=== PATIENT | male | born 1950 | race African-American/Black ===

== ENCOUNTER 2019-08-24 20:21 | Inpatient (IN) | payer MEDICARE, MEDICAID ==
[~2019-08-24] VITALS: Ht 170.2 cm; Wt 180.0 kg
[2019-08-24 22:02] LABS: BASOPHILS % 0.4 % (0.0-2.0); EOSINOPHILS % 0.1 % (0.0-5.0); HEMATOCRIT. 31.9 % (42.0-52.0); HEMOGLOBIN. 9.9 g/dL (14.0-18.0); MEAN CORPUSCULAR HEMOGLOBIN 24.3 pg (28.0-32.0); MEAN CORPUSCULAR VOLUME 78.6 fL (80.0-94.0); MEAN PLATELET VOLUME 8.1 fl (7.4-10.4); MONOCYTES % 9.3 % (2.0-8.0); NEUTROPHILS % 81.2 % (40.0-76.0); PLATELET 410 x1000/uL (130-400); RED BLOOD CELL COUNT 4.06 mill/uL (4.7-6.1); RED CELL DISTRIBUTION WIDTH 25.5 % (11.6-14.6)
[2019-08-24 22:19] LABS: PLATELET ESTIMATE INCREASED
[2019-08-24 22:20] LABS: CHLORIDE 116 mEq/L (98-107)
[2019-08-24] MEDS ORDERED: ASPIRIN 81MG TABLET PO ONE (23:30)
[2019-08-24] MEDS ORDERED: FUROSEMIDE 40MG/4ML VIAL IV ONE (23:30)
[2019-08-24] MEDS ORDERED: BACITRACIN ZINC OINT UDPKT TOP ONE (23:30)
[2019-08-24] MEDS ORDERED: ENOXAPARIN 120MG/0.8ML SYR SUBCUT ONE (23:30)
[2019-08-25] MEDS ORDERED: ALBUTEROL (0.083%) 2.5MG/3ML NEB HHN ONE (01:15)
[2019-08-25] MEDS ORDERED: CLONIDINE 0.1MG TABLET PO PRN (11:45)
[2019-08-25] MEDS ORDERED: ACETAMINOPHEN 325MG TABLET PO PRN (11:45)
[2019-08-25] MEDS ORDERED: IPRATROPIUM/ALBUTEROL 0.5-3(2.5)MG/3ML NEB HHN PRN (11:45)
[2019-08-25] MEDS ORDERED: ONDANSETRON HCL 4MG/2ML INJ IV PRN (11:45)
[2019-08-25] MEDS ORDERED: LORAZEPAM 0.5MG TABLET PO PRN (11:45)
[2019-08-25] MEDS ORDERED: CEFTRIAXONE 1 G PREMIX 50 ML IV SCH (12:00)
[2019-08-25] MEDS ORDERED: AZITHROMYCIN 500 MG in DEXT 5% WATER 250 ML IV SCH (12:00)
[2019-08-25] MEDS: FUROSEMIDE 40MG/4ML VIAL IVP SCH ×2 (12:42→18:25)
[2019-08-25 15:38] LABS: HEMOGLOBIN. 8.7 g/dL (14.0-18.0); MEAN CORPUSCULAR HEMOGLOBIN 23.2 pg (28.0-32.0); MEAN CORPUSCULAR VOLUME 74.8 fL (80.0-94.0); MEAN PLATELET VOLUME 7.9 fl (7.4-10.4); PLATELET 383 x1000/uL (130-400); RED BLOOD CELL COUNT 3.74 mill/uL (4.7-6.1); RED CELL DISTRIBUTION WIDTH 25.6 % (11.6-14.6)
[2019-08-25 15:47] LABS: CREATINE KINASE MB FRACTION 11.2 ng/mL (0.5-3.6)
[2019-08-25 15:58] LABS: PLATELET ESTIMATE NORMAL
[2019-08-25 18:47] LABS: BG BASE EXCESS -2.2 mmol/L (-2.0-2.0); BG CARBOXYHEMOGLOBIN 0.3 % (0.5-1.5); BG DEOXYHEMOGLOBIN 3.9 % (0.0-5.0); BG FRACTION INSPIRED OXYGEN 28; BG HCO3 ACT 21.7 mmol/L (22.0-26.0); BG METHEMOGLOBIN 0.4 % (0.0-1.5); BG OXYGEN SATURATION 96.1 % (92.0-98.5); BG OXYHEMOGLOBIN 95.4 % (94.0-97.0); BG PCO2 33.6 mmHg (35.0-45.0); BG PH 7.428 (7.350-7.450); BG PO2 91.5 mmHg (75.0-100.0); BG SAMPLE SITE RIGHT BRACHIAL; BG TOTAL HEMOGLOBIN 9.6 g/dL (12.0-18.0); BG VENT MODE NASAL CANNULA
[2019-08-26 01:00] VITALS: BP 100/51
[2019-08-26] MEDS ORDERED: FURO-151 PO (01:46)
[2019-08-26 07:49] LABS: HEMATOCRIT. 25.3 % (42.0-52.0); HEMOGLOBIN. 7.9 g/dL (14.0-18.0); MEAN CORPUSCULAR HEMOGLOBIN 23.3 pg (28.0-32.0); MEAN CORPUSCULAR VOLUME 74.9 fL (80.0-94.0); MEAN PLATELET VOLUME 7.7 fl (7.4-10.4); PLATELET 335 x1000/uL (130-400); RED BLOOD CELL COUNT 3.38 mill/uL (4.7-6.1)
[2019-08-26 08:00] VITALS: BP 100/55
[2019-08-26] MEDS: FUROSEMIDE 40MG/4ML VIAL IVP SCH ×2 (10:16→17:00)
[2019-08-26 10:28] LABS: PLATELET ESTIMATE NORMAL
[2019-08-26 12:00] VITALS: BP 103/53
[2019-08-26] MEDS ORDERED: INFLUENZA VIRUS VACCINE(AFLURIA) 0.5ML SYR IM ONE (12:00)
[2019-08-26] MEDS ORDERED: CEFTRIAXONE 1 G PREMIX 50 ML IV SCH (12:00)
[2019-08-26] MEDS ORDERED: PNEUMOCOCCAL 23-VAL P-SAC VAC 0.5 ML IM ONE (12:00)
[2019-08-26 12:55] LABS: CLARITY URINE CLEAR (CLEAR); COLOR URINE YELLOW (YELLOW); KETONES URINE NEGATIVE (NEGATIVE); LEUKOCYTE ESTERASE URINE NEGATIVE (NEGATIVE); NITRITE URINE NEGATIVE (NEGATIVE); OCCULT BLOOD URINE NEGATIVE (NEGATIVE); PROTEIN URINE NEGATIVE (NEGATIVE); SPECIFIC GRAVITY URINE 1.014 (1.005-1.030)
[2019-08-26] MEDS ORDERED: AZITHROMYCIN 500 MG in DEXT 5% WATER 250 ML IV SCH (13:00)
[2019-08-26] MEDS ORDERED: PIPERACILLIN/TAZOBACTAM 3.375 G/VIAL IV SCH (14:00)
[2019-08-26] MEDS ORDERED: DEXTROSE 50% WATER 50ML SYRINGE IV PRN (14:00)
[2019-08-26] MEDS ORDERED: SODIUM BICARBONATE 4% (2.4MEQ) 5ML VIAL IV ONE (14:36)
[2019-08-26] MEDS ORDERED: LIDOCAINE HCL 1% 20ML VIAL (Pyxis) INJ ONE (14:36)
[2019-08-26] MEDS ORDERED: PIPERACILLIN/TAZOBACTAM 3.375 G in DEXT 5% WATER 100 ML IV SCH (15:30)
[2019-08-26 16:00] VITALS: BP 101/64
[2019-08-26] MEDS ORDERED: VANCOMYCIN 1500MG in DEXTROSE 5% WATER 250ML IV SCH (16:00)
[2019-08-26] MEDS: BLOOD SUGAR DIAGNOSTIC STRIP TEST SCH ×2 (16:57→22:00)
[2019-08-26] MEDS: INSULIN LISPRO 100 UNITS/ML SUBCUT SCH ×2 (17:15→21:00)
[2019-08-26 17:54] LABS: HEPATITIS B SURFACE ANTIGEN NEGATIVE
[2019-08-26 18:24] LABS: HEPATITIS A AB IGM NEGATIVE (NEGATIVE)
[2019-08-26] MEDS: CARVEDILOL 3.125 MG TABLET PO SCH (21:00)
[2019-08-26] MEDS: CEFEPIME 2,000 MG in DEXT 5% WATER 100 ML IV SCH (22:00)
[2019-08-26] MEDS: LINEZOLID 600 MG PREMIX 300 ML IV SCH (22:00)
[2019-08-27 04:00] VITALS: BP 113/62
[2019-08-27] MEDS: INSULIN LISPRO 100 UNITS/ML SUBCUT SCH ×4 (07:15→21:45)
[2019-08-27] MEDS: BLOOD SUGAR DIAGNOSTIC STRIP TEST SCH ×4 (07:18→21:36)
[2019-08-27 07:34] LABS: PHOSPHORUS 3.1 mg/dL (2.5-4.9)
[2019-08-27 07:39] LABS: BASOPHILS % 0.2 % (0.0-2.0); EOSINOPHILS % 1.4 % (0.0-5.0); HEMATOCRIT. 22.6 % (42.0-52.0); HEMOGLOBIN. 7.3 g/dL (14.0-18.0); LYMPHOCYTES % 17.7 % (20.0-50.0); MEAN CORPUSCULAR VOLUME 77.8 fL (80.0-94.0); MEAN PLATELET VOLUME 7.8 fl (7.4-10.4); MONOCYTES % 10.7 % (2.0-8.0); PLATELET 269 x1000/uL (130-400); RED BLOOD CELL COUNT 2.91 mill/uL (4.7-6.1); RED CELL DISTRIBUTION WIDTH 24.9 % (11.6-14.6)
[2019-08-27 08:00] VITALS: BP 87/55
[2019-08-27] MEDS: FUROSEMIDE 40MG/4ML VIAL IVP SCH ×3 (09:00→18:10)
[2019-08-27] MEDS: CARVEDILOL 3.125 MG TABLET PO SCH (09:00)
[2019-08-27] MEDS: HYDROCODONE/ACETAMINOPHEN 5/325MG TABLET PO PRN ×2 (09:01→23:38)
[2019-08-27] MEDS: LINEZOLID 600 MG PREMIX 300 ML IV SCH ×2 (10:55→22:45)
[2019-08-27 12:00] VITALS: BP 89/58
[2019-08-27] MEDS: MIDODRINE HCL 2.5MG TABLET PO SCH ×2 (12:23→18:10)
[2019-08-27] MEDS ORDERED: ALBUMIN HUMAN 25GM/100ML (25%) IV SCH (14:00)
[2019-08-27 16:00] VITALS: BP 91/50
[2019-08-27] MEDS ORDERED: VANCOMYCIN 1250MG in DEXTROSE 5% WATER 250ML IV SCH (16:00)
[2019-08-27 20:00] VITALS: BP 99/56
[2019-08-27] MEDS: CEFEPIME 2,000 MG in DEXT 5% WATER 100 ML IV SCH (21:37)
[2019-08-28] VITALS: BP 102/59
[2019-08-28 04:00] VITALS: BP 103/64
[2019-08-28 05:08] LABS: HIV SCREEN 4G Non Reactive (Non Reactive)
[2019-08-28 06:03] LABS: PHOSPHORUS 3.1 mg/dL (2.5-4.9)
[2019-08-28] MEDS: BLOOD SUGAR DIAGNOSTIC STRIP TEST SCH ×4 (06:03→21:03)
[2019-08-28] MEDS: INSULIN LISPRO 100 UNITS/ML SUBCUT SCH ×4 (06:03→21:00)
[2019-08-28 06:27] LABS: BASOPHILS % 0.1 % (0.0-2.0); EOSINOPHILS % 1.6 % (0.0-5.0); HEMATOCRIT. 23.1 % (42.0-52.0); HEMOGLOBIN. 7.4 g/dL (14.0-18.0); LYMPHOCYTES % 17.9 % (20.0-50.0); MEAN CORPUSCULAR HEMOGLOBIN 24.2 pg (28.0-32.0); MEAN PLATELET VOLUME 7.9 fl (7.4-10.4); MONOCYTES % 10.9 % (2.0-8.0); NEUTROPHILS % 69.5 % (40.0-76.0); PLATELET 267 x1000/uL (130-400); RED BLOOD CELL COUNT 3.05 mill/uL (4.7-6.1)
[2019-08-28 08:00] VITALS: BP 96/67
[2019-08-28] MEDS: FUROSEMIDE 40MG/4ML VIAL IVP SCH ×2 (08:55→17:03)
[2019-08-28] MEDS: MIDODRINE HCL 2.5MG TABLET PO SCH ×3 (08:57→17:02)
[2019-08-28] MEDS: LINEZOLID 600 MG PREMIX 300 ML IV SCH ×2 (09:05→22:30)
[2019-08-28] MEDS: HYDROCODONE/ACETAMINOPHEN 5/325MG TABLET PO PRN (10:26)
[2019-08-28 12:00] VITALS: BP 100/68
[2019-08-28 17:36] LABS: INR 1.1; PROTHROMBIN TIME 11.8 sec (9.6-11.0)
[2019-08-28 20:00] VITALS: BP 104/69
[2019-08-28] MEDS: NYSTATIN POWDER 15GM TOP SCH (20:52)
[2019-08-28] MEDS: CEFEPIME 2,000 MG in DEXT 5% WATER 100 ML IV SCH (21:04)
[2019-08-29] VITALS: BP 108/70
[2019-08-29 04:00] VITALS: BP 108/70
[2019-08-29] MEDS: BLOOD SUGAR DIAGNOSTIC STRIP TEST SCH ×4 (05:53→21:00)
[2019-08-29 06:57] LABS: HEMATOCRIT. 24.5 % (42.0-52.0); HEMOGLOBIN. 7.8 g/dL (14.0-18.0); MEAN CORPUSCULAR HEMOGLOBIN 23.9 pg (28.0-32.0); MEAN CORPUSCULAR VOLUME 74.8 fL (80.0-94.0); MEAN PLATELET VOLUME 7.9 fl (7.4-10.4); PLATELET 283 x1000/uL (130-400); RED BLOOD CELL COUNT 3.28 mill/uL (4.7-6.1)
[2019-08-29] MEDS: INSULIN LISPRO 100 UNITS/ML SUBCUT SCH ×4 (07:15→21:00)
[2019-08-29 07:23] LABS: PHOSPHORUS 2.9 mg/dL (2.5-4.9)
[2019-08-29] MEDS: HYDROCODONE/ACETAMINOPHEN 5/325MG TABLET PO PRN (08:45)
[2019-08-29] MEDS: FUROSEMIDE 40MG/4ML VIAL IVP SCH ×2 (08:46→16:59)
[2019-08-29] MEDS: MIDODRINE HCL 2.5MG TABLET PO SCH ×3 (08:46→17:00)
[2019-08-29] MEDS: NYSTATIN POWDER 15GM TOP SCH ×2 (09:00→17:00)
[2019-08-29 09:30] VITALS: BP 108/74
[2019-08-29 11:32] LABS: PLATELET ESTIMATE NORMAL
[2019-08-29 12:00] VITALS: BP 111/79
[2019-08-29] MEDS: DOCUSATE SODIUM 100MG CAPSULE PO SCH ×2 (13:18→16:59)
[2019-08-29] MEDS: FERROUS SULFATE 325MG TABLET PO SCH ×2 (13:18→16:59)
[2019-08-29 16:00] VITALS: BP 114/63
[2019-08-29] MEDS: LINEZOLID 600MG TABLET PO SCH (17:00)
[2019-08-29 20:00] VITALS: BP 116/68
[2019-08-29] MEDS: CEFEPIME 2,000 MG in DEXT 5% WATER 100 ML IV SCH (22:52)
[2019-08-30] VITALS: BP 112/68
[2019-08-30 04:00] VITALS: BP 114/60
[2019-08-30] MEDS: FERROUS SULFATE 325MG TABLET PO SCH (06:18)
[2019-08-30] MEDS: INSULIN LISPRO 100 UNITS/ML SUBCUT SCH ×4 (06:19→21:00)
[2019-08-30] MEDS: BLOOD SUGAR DIAGNOSTIC STRIP TEST SCH ×4 (06:19→21:00)
[2019-08-30 08:00] VITALS: BP 106/67
[2019-08-30] MEDS: DOCUSATE SODIUM 100MG CAPSULE PO SCH ×2 (08:40→16:38)
[2019-08-30] MEDS: LINEZOLID 600MG TABLET PO SCH ×2 (08:40→16:39)
[2019-08-30] MEDS: MIDODRINE HCL 2.5MG TABLET PO SCH ×3 (08:47→16:38)
[2019-08-30] MEDS: FUROSEMIDE 40MG/4ML VIAL IVP SCH ×2 (08:48→16:39)
[2019-08-30] MEDS: NYSTATIN POWDER 15GM TOP SCH ×2 (08:48→16:46)
[2019-08-30] MEDS: HYDROCODONE/ACETAMINOPHEN 5/325MG TABLET PO PRN (08:48)
[2019-08-30 09:38] LABS: HEMATOCRIT. 26.5 % (42.0-52.0); HEMOGLOBIN. 8.4 g/dL (14.0-18.0); MEAN CORPUSCULAR HEMOGLOBIN 23.6 pg (28.0-32.0); MEAN CORPUSCULAR VOLUME 74.7 fL (80.0-94.0); PLATELET 292 x1000/uL (130-400); RED BLOOD CELL COUNT 3.54 mill/uL (4.7-6.1); RED CELL DISTRIBUTION WIDTH 25.1 % (11.6-14.6)
[2019-08-30 09:44] LABS: CHLORIDE 108 mEq/L (98-107)
[2019-08-30 11:40] LABS: PLATELET ESTIMATE NORMAL
[2019-08-30 12:00] VITALS: BP 103/62
[2019-08-30] MEDS: IRON SUCROSE COMPLEX 100 MG/5 ML ML IV SCH (14:22)
[2019-08-30 16:00] VITALS: BP 96/75
[2019-08-30 20:00] VITALS: BP 121/88
[2019-08-31] VITALS: BP 98/60
[2019-08-31] MEDS: CEFEPIME 2,000 MG in DEXT 5% WATER 100 ML IV SCH ×2 (00:10→21:53)
[2019-08-31 04:00] VITALS: BP 100/61
[2019-08-31] MEDS: BLOOD SUGAR DIAGNOSTIC STRIP TEST SCH ×4 (05:46→21:52)
[2019-08-31] MEDS: INSULIN LISPRO 100 UNITS/ML SUBCUT SCH ×4 (06:43→21:00)
[2019-08-31 08:00] VITALS: BP 121/79
[2019-08-31] MEDS: MIDODRINE HCL 2.5MG TABLET PO SCH ×3 (09:38→18:18)
[2019-08-31] MEDS: DOCUSATE SODIUM 100MG CAPSULE PO SCH ×2 (09:38→18:19)
[2019-08-31] MEDS: NYSTATIN POWDER 15GM TOP SCH ×2 (09:38→18:18)
[2019-08-31] MEDS: FUROSEMIDE 40MG/4ML VIAL IVP SCH ×2 (09:38→18:18)
[2019-08-31] MEDS: LINEZOLID 600MG TABLET PO SCH ×2 (09:39→17:00)
[2019-08-31 10:15] LABS: BASOPHILS % 0.5 % (0.0-2.0); EOSINOPHILS % 1.2 % (0.0-5.0); HEMATOCRIT. 25.1 % (42.0-52.0); HEMOGLOBIN. 7.9 g/dL (14.0-18.0); LYMPHOCYTES % 14.9 % (20.0-50.0); MEAN CORPUSCULAR HEMOGLOBIN 23.1 pg (28.0-32.0); MEAN CORPUSCULAR VOLUME 73.7 fL (80.0-94.0); MEAN PLATELET VOLUME 7.5 fl (7.4-10.4); MONOCYTES % 10.4 % (2.0-8.0); PLATELET 304 x1000/uL (130-400); RED BLOOD CELL COUNT 3.41 mill/uL (4.7-6.1)
[2019-08-31 10:29] LABS: CHLORIDE 110 mEq/L (98-107)
[2019-08-31] MEDS: IRON SUCROSE COMPLEX 100 MG/5 ML ML IV SCH (11:46)
[2019-08-31 12:00] VITALS: BP 107/77
[2019-08-31] MEDS: PSYLLIUM SEED PACKET PO SCH ×2 (13:02→18:18)
[2019-08-31 16:00] VITALS: BP 116/82
[2019-08-31 20:00] VITALS: BP 120/75
[2019-09-01] VITALS (7 sets, daily range): BP systolic 104–115; BP diastolic 66–80
[2019-09-01] MEDS: BLOOD SUGAR DIAGNOSTIC STRIP TEST SCH ×4 (06:35→20:38)
[2019-09-01] MEDS: INSULIN LISPRO 100 UNITS/ML SUBCUT SCH ×4 (06:35→20:38)
[2019-09-01 08:56] LABS: HEMATOCRIT. 24.9 % (42.0-52.0); HEMOGLOBIN. 7.9 g/dL (14.0-18.0); MEAN CORPUSCULAR HEMOGLOBIN 24.4 pg (28.0-32.0); MEAN CORPUSCULAR VOLUME 76.5 fL (80.0-94.0); PLATELET 298 x1000/uL (130-400); RED BLOOD CELL COUNT 3.25 mill/uL (4.7-6.1); RED CELL DISTRIBUTION WIDTH 24.9 % (11.6-14.6)
[2019-09-01] MEDS: DOCUSATE SODIUM 100MG CAPSULE PO SCH ×2 (09:00→17:00)
[2019-09-01] MEDS: PSYLLIUM SEED PACKET PO SCH ×3 (09:00→17:00)
[2019-09-01 09:01] LABS: CHLORIDE 110 mEq/L (98-107)
[2019-09-01] MEDS: IRON SUCROSE COMPLEX 100 MG/5 ML ML IV SCH (09:06)
[2019-09-01] MEDS: FUROSEMIDE 40MG/4ML VIAL IVP SCH ×2 (09:06→17:32)
[2019-09-01] MEDS: MIDODRINE HCL 2.5MG TABLET PO SCH ×3 (09:06→17:30)
[2019-09-01] MEDS: NYSTATIN POWDER 15GM TOP SCH ×2 (09:08→17:32)
[2019-09-01 09:10] LABS: PHOSPHORUS 2.2 mg/dL (2.5-4.9)
[2019-09-01] MEDS ORDERED: HYDROMORPHONE HCL/PF 2MG/ML CPJ IV NR (10:15)
[2019-09-01] MEDS ORDERED: FERR325T6 MT (11:21)
[2019-09-01] MEDS ORDERED: FURO40TA5 MT (11:21)
[2019-09-01 12:31] LABS: PLATELET ESTIMATE NORMAL
[2019-09-01] MEDS: FERROUS SULFATE 325MG TABLET PO SCH ×2 (13:04→17:29)
[2019-09-02] VITALS: BP 118/82
[2019-09-02 04:00] VITALS: BP 114/67
[2019-09-02] MEDS: INSULIN LISPRO 100 UNITS/ML SUBCUT SCH ×4 (05:46→21:00)
[2019-09-02] MEDS: BLOOD SUGAR DIAGNOSTIC STRIP TEST SCH ×4 (05:46→21:00)
[2019-09-02] MEDS: FERROUS SULFATE 325MG TABLET PO SCH ×3 (06:19→18:54)
[2019-09-02 08:00] VITALS: BP 119/80
[2019-09-02] MEDS: DOCUSATE SODIUM 100MG CAPSULE PO SCH ×2 (09:00→17:00)
[2019-09-02] MEDS: PSYLLIUM SEED PACKET PO SCH ×4 (09:00→17:00)
[2019-09-02] MEDS: MIDODRINE HCL 2.5MG TABLET PO SCH ×3 (10:13→18:53)
[2019-09-02] MEDS: FUROSEMIDE 40MG/4ML VIAL IVP SCH ×2 (10:13→18:53)
[2019-09-02] MEDS: NYSTATIN POWDER 15GM TOP SCH ×2 (10:14→18:54)
[2019-09-02 12:00] VITALS: BP 119/84
[2019-09-02 16:00] VITALS: BP 113/81
[2019-09-02 20:00] VITALS: BP 121/89
[2019-09-03] VITALS: BP 122/86
[2019-09-03 04:00] VITALS: BP 114/73
[2019-09-03] MEDS: BLOOD SUGAR DIAGNOSTIC STRIP TEST SCH (05:50)
[2019-09-03] MEDS: INSULIN LISPRO 100 UNITS/ML SUBCUT SCH ×2 (06:16→12:15)
[2019-09-03 08:00] VITALS: BP 124/84
[2019-09-03] MEDS: NYSTATIN POWDER 15GM TOP SCH (09:15)
[2019-09-03] MEDS: DOCUSATE SODIUM 100MG CAPSULE PO SCH (09:15)
[2019-09-03] MEDS: FERROUS SULFATE 325MG TABLET PO SCH ×2 (09:15→13:11)
[2019-09-03] MEDS: MIDODRINE HCL 2.5MG TABLET PO SCH ×2 (09:15→13:12)
[2019-09-03] MEDS: FUROSEMIDE 40MG/4ML VIAL IVP SCH (09:15)
[2019-09-03] MEDS: PSYLLIUM SEED PACKET PO SCH ×2 (09:15→13:00)
[2019-09-03 12:00] VITALS: BP 141/95
[2019-09-03 16:00] VITALS: BP 137/88
== END 2019-09-03 17:55 | disposition home or self-care (01) | DRG 871 ==
LOC: ER 20:21 → 5WST 23:29 → EDBEDREQ 23:33 → EDBEDREQTM 23:33 → ENRESERV 08-26 00:16 → 5WST 08-28 12:00
PROVIDERS: ADMIT Internal Medicine; ATTEND Internal Medicine
PROC: 02HV33Z Insertion of Infusion Device into Superior Vena Cava, Percutaneous Approach (ICD-10-PCS; principal; 2019-08-26)
PROC: B548ZZA Ultrasonography of Superior Vena Cava, Guidance (ICD-10-PCS; 2019-08-26)
DX: A41.9 Sepsis, unspecified organism (principal); E43 Unspecified severe protein-calorie malnutrition; J96.00 Acute respiratory failure, unspecified whether with hypoxia or hypercapnia; J18.9 Pneumonia, unspecified organism; I50.23 Acute on chronic systolic (congestive) heart failure; E87.2 Acidosis; N17.9 Acute kidney failure, unspecified; Z68.44 Body mass index [BMI] 60.0-69.9, adult; I13.0 Hypertensive heart and chronic kidney disease with heart failure and stage 1 through stage 4 chronic kidney disease, or unspecified chronic kidney disease; L03.90 Cellulitis, unspecified; N04.9 Nephrotic syndrome with unspecified morphologic changes; J44.0 Chronic obstructive pulmonary disease with (acute) lower respiratory infection; D50.9 Iron deficiency anemia, unspecified; N18.9 Chronic kidney disease, unspecified; I71.9 Aortic aneurysm of unspecified site, without rupture; I25.10 Atherosclerotic heart disease of native coronary artery without angina pectoris; I50.9 Heart failure, unspecified; B19.20 Unspecified viral hepatitis C without hepatic coma; E11.22 Type 2 diabetes mellitus with diabetic chronic kidney disease; E11.65 Type 2 diabetes mellitus with hyperglycemia; E66.01 Morbid (severe) obesity due to excess calories; D72.810 Lymphocytopenia; D72.821 Monocytosis (symptomatic); I25.118 Atherosclerotic heart disease of native coronary artery with other forms of angina pectoris; I25.5 Ischemic cardiomyopathy; I27.20 Pulmonary hypertension, unspecified; I89.0 Lymphedema, not elsewhere classified; K74.60 Unspecified cirrhosis of liver; R74.0 Nonspecific elevation of levels of transaminase and lactic acid dehydrogenase [LDH]; R16.0 Hepatomegaly, not elsewhere classified; I34.0 Nonrheumatic mitral (valve) insufficiency; T25.222A Burn of second degree of left foot, initial encounter; Z20.828 Contact with and (suspected) exposure to other viral communicable diseases; T25.221A Burn of second degree of right foot, initial encounter; X08.8XXA Exposure to other specified smoke, fire and flames, initial encounter; Y93.89 Activity, other specified; Z95.5 Presence of coronary angioplasty implant and graft; Z87.891 Personal history of nicotine dependence; Z86.73 Personal history of transient ischemic attack (TIA), and cerebral infarction without residual deficits; Z95.810 Presence of automatic (implantable) cardiac defibrillator; I25.2 Old myocardial infarction; Z82.49 Family history of ischemic heart disease and other diseases of the circulatory system; Y92.89 Other specified places as the place of occurrence of the external cause; Y99.8 Other external cause status; Z79.899 Other long term (current) drug therapy; N28.1 Cyst of kidney, acquired
CPT/HCPCS: 36415; 36573; 71045; 73620; 76700; 76937; 80048; 80053; 80061; 80076; 81003; 82105; 82270; 82550; 82962; 82977; 83735; 83880; 84100; 84484; 84550; 85025; 85044; 86705; 86709; 86803; 86850; 86900; 86920; 87340; 87389; 93005; 93306; 93970; 94640; 96365; 96366; 96368; 96372; 96375; 96376; 97022; 97162; 99285; C1725; J0456; J0692; J0696; J1170; J1650; J1815; J1940; J2020; J2543; J3370; J3490; J7060; P9047